=== PATIENT | female | born 1950 | race Caucasian/White ===

== ENCOUNTER 2018-09-17 21:41 | Emergency (ER) | payer OTHER ==
[2018-09-17 21:53] VITALS: BP 169/108; PULSE 104; TEMP 98.3; BMI 25.8
--- NOTE | 2018-09-18 00:41 | PDOC ---
Documentation entered by Yuko Patel SCRIBE, acting as scribe for Prema Sampson MD. Prema Sampson MD: This documentation has been prepared by the pettyeJorge Aiswarya, SCRIBE, under my direction and personally reviewed by me in its entirety. I confirm that the documentation accurately reflects all work, treatment, procedures, and medical decision making performed by me. History of Present Illness - General Chief Complaint: Laceration Stated Complaint: RT HAND LAC Time Seen by Provider: 09/17/18 21:55 History Source: Patient Exam Limitations: No Limitations - History of Present Illness Initial Comments: 09/17/18 22:22 The patient is a 68 year old female, with no significant PMH, who presents to the emergency department with right hand laceration that occurred tonight. The patient states she was cleaning a new knife when she cut the palmar aspect of her right hand proximal to phalanx index finger. Patient reports active bleeding to the site of injury and. Patient denies pain, numbness or tingling. Denies any other injury. Denies decrease ROM. Allergies: Penicillin Past surgical history: None reported Social history: None reported PCP: None reported Past History - Past Medical History Allergies/Adverse Reactions: Allergies Allergy/AdvReac Type Severity Reaction Status Date / Time Penicillins Allergy Verified 09/17/18 21:42 Home Medications: Ambulatory Orders NK [No Known Home Medication] 09/17/18 COPD: No - Suicide/Smoking/Psychosocial Hx Smoking History: Never smoked Review of Systems - Review of Systems Able to Perform ROS?: Yes Comments:: 09/17/18 22:23 GENERAL/CONSTITUTIONAL: No fever or chills. No weakness. HEAD, EYES, EARS, NOSE AND THROAT: No change in vision. No ear pain or discharge. No sore throat. MUSCULOSKELETAL: No joint or muscle swelling or pain. No neck or back pain. SKIN: right hand laceration. NEUROLOGIC: No headache, vertigo, loss of consciousness, or change in strength/ sensation. ENDOCRINE: No increased thirst. No abnormal weight change. HEMATOLOGIC/LYMPHATIC: No anemia, easy bleeding, or history of blood clots. ALLERGIC/IMMUNOLOGIC: No hives or skin allergy. *Physical Exam - Vital Signs Last Vital Signs Temp Pulse Resp BP Pulse Ox 98.3 F 104 H 18 169/108 H 100 09/17/18 21:44 09/17/18 21:44 09/17/18 21:44 09/17/18 21:44 09/17/18 21:44 - Physical Exam Comments: 09/17/18 22:23 GENERAL: Awake, alert, and fully oriented, in no acute distress HEAD: No signs of trauma EXTREMITIES: Normal range of motion, no edema. No clubbing or cyanosis. No cords, erythema, or tenderness NEUROLOGICAL: Cranial nerves II through XII grossly intact. Normal speech. SKIN:+Right hand 2.5 cm linear full diagonal laceration of the palmar aspect proximal to the phalanx index finger. Motor function and sensory intact. Procedures - Laceration/Wound Repair Right Proximal 2nd digit Wound Length: to 2.5 cm Wound Explored: clean Wound's Depth, Shape: linear Irrigated w/ Saline: Yes Betadine Prep: No (chlorhexidine/ethanol) Anesthesia: 1% Lidocaine Amount of Anesthetic (ccs): 2 Wound Repaired With: Sutures Suture Size/Type: 5:0 Number of Sutures: 4 Layer Closure: No Sterile Dressing Applied: Yes Splint Applied: No Progress: 2.5 centimeter linear, full-thickness laceration of the palmar aspect of the proximal phalanx, second digit of right hand cleansed using chlorhexidine/ ethanol solution. Local anesthesia achieved using 2 mL of 1% lidocaine solution injected subcutaneously into the wound. Wound irrigated using 60 mL normal saline. No evidence of foreign body or tendon/vascular injury on inspection of wound. Wound edges carefully approximated and wound closed with 4 interrupted sutures of 5-0 nylon. Bacitracin and sterile gauze dressing applied to the wound. Patient tolerated procedure well Medical Decision Making - Medical Decision Making This 68-year-old woman with out significant past medical history presents with full-thickness laceration of the proximal phalanx/palmar aspect of the right index finger, sustained in her own home with a new kitchen knife. Patient states that she was cleaning knife for the first time when she accidentally ran the blade across her index finger. Bleeding persisted despite continuous direct pressure. Exam as noted: Full sensory and motor functioning of finger present. Repair of wound as noted above. Patient discharged with instructions to keep original bandage place for 2 days, as dry as possible. Following this, protective dressing during the day/open at night with antibiotic ointment applied daily. The patient does not have a general medical doctor and was given Dr. Chin referral information. She should follow-up with Dr. Chin or return to the ER if evidence of infection in the wound occurs (for example, increased swelling /redness/pain in the area of the wound) Sutures should be removed in approximately 1 week (September 24) *DC/Admit/Observation/Transfer Diagnosis at time of Disposition: Finger laceration Qualifiers: Encounter type: initial encounter Finger: index finger Damage to nail status: without damage Foreign body presence: without foreign body Laterality: right Qualified Code(s): S61.210A - Laceration without foreign body of right index finger without damage to nail, initial encounter - Discharge Dispostion Disposition: HOME Condition at time of disposition: Stable - Referrals Referrals: Karyn Chin MD [Staff Physician] - - Patient Instructions Printed Discharge Instructions: How to Care for a Laceration After Repair Additional Instructions: keep original bandage in place, as dry as possible for 2 days After 2 days, placed Band-Aid on wound during day/open at night Can use bacitracin or Neosporin ointment daily to wound until sutures removed After original dressing removed, can wet wound briefly but no immersion until sutures removed Return or see Dr. Chin if wound becomes swollen/red/painful Have sutures removed on September - Post Discharge Activity
== END 2018-09-17 22:51 | disposition home or self-care (01) ==
LOC: FER 21:41
PROC: 0HQFXZZ Repair Right Hand Skin, External Approach (ICD-10-PCS; principal; 2018-09-17)
DX: S61.210A Laceration without foreign body of right index finger without damage to nail, initial encounter (principal); W26.0XXA Contact with knife, initial encounter; Y93.89 Activity, other specified; Y92.9 Unspecified place or not applicable; Z88.0 Allergy status to penicillin
CPT/HCPCS: 12001; 99281-25

== ENCOUNTER 2018-09-24 08:59 | Emergency (ER) | payer OTHER ==
--- NOTE | 2018-09-24 09:03 | PDOC ---
Suture Removal/Wound Check HPI - History of Present Illness Chief Complaint: Suture/Staple Removal (other) Stated Complaint: SUTURE REMOVAL Time Seen by Provider: 09/24/18 09:00 History Source: Yes: Patient Exam Limitations: Yes: No Limitations Treated at: [facility] - Onset of Previous Treatment Comment:: 09/24/18 09:00 68 year old female, with no significant PMH, who presents to the emergency department with suture removal s/p right finger laceration on 09/22/18. She had 4 sutures placed at that time, has been cleaning it properly without complications. No f/c, discharge, malodor, redness, swelling or pain. tdap is up to date. Past History - Past Medical History Allergies/Adverse Reactions: Allergies Allergy/AdvReac Type Severity Reaction Status Date / Time Penicillins Allergy Verified 09/17/18 21:42 Home Medications: Ambulatory Orders NK [No Known Home Medication] 09/17/18 COPD: No - Suicide/Smoking/Psychosocial Hx Smoking History: Never smoked *Review of Systems - Review of Systems Able to Perform ROS?: Yes Comments:: 09/24/18 09:00 Review of Systems Shortened - MSK/Level 4s Constitutional: no fevers or chills. MUSCULOSKELETAL: No joint pain and swelling. No muscle pain/arthralgias. Back: no back pain SKIN: no redness or skin changes, no discharge, no rash. +healed laceration Hematologic: no easy bruising/bleeding. NEUROLOGIC: No weakness, numbness or tingling. Allergic/Immunologic: pcn allergy All other systems reviewed and negative, or as documented in HPI. *Physical Exam - Physical Exam Comments: 09/24/18 09:01 General: NAD, well appearing Vascular: 2+ radialis pulses symmetric and equal. Neuro: distal station attendant strength 5/5. sensation grossly intact in median/radial/ ulnar distribution. MSK: soft compartments, Cap refill <2 sec. 2+ radialis pulses bilaterally and symmetric. FDP/FDS intact. no joint tenderness. FROM. Skin: color normal color, warm and well perfused. Rt index finger healed laceration on palmar surface proximally, measuring 2cm with [address]. No erythema/edema, nonbleeding, nontender. Procedures - Laceration/Wound Repair Right Volar Finger Wound Length: to 2.5 cm Wound's Depth, Shape: superficial Progress: 09/24/18 09:01 Verbal consent was obtained. Wound well approximated, no erythema, induration, or discharge noted. 4 sutures completely removed in a sterile fashion. Patient tolerated procedure well, no complications. Patient advised to look for and return for any signs of infection such as redness, swelling, discharge, or worsening pain. Medical Decision Making - Medical Decision Making 09/24/18 09:02 4 sutures removed uncomplicated, area well approximated to rt index finger, no s /s infection or neurovasc compromise Procedure uncomplicated, sutures removed. Instructions on wound care and proper cleaning, scar minimization. Pt understands impression and plan. *DC/Admit/Observation/Transfer Diagnosis at time of Disposition: Visit for suture removal - Discharge Dispostion Disposition: HOME Condition at time of disposition: Good Decision to Admit order: No - Referrals Referrals: Karyn Chin MD [Staff Physician] - - Patient Instructions Printed Discharge Instructions: DI for Suture Removal Additional Instructions: AFTER the stitches are removed: Clean your wound as directed. Carefully wash your wound with soap and water. Pat the area dry with a clean towel. Protect your wound. Your wound can swell, bleed, or split open if it is stretched or bumped. You may need to wear a bandage that supports your wound until it is completely healed. Minimize your scar. Use sunblock if your wound is exposed to the sun. Apply it every day after the stitches are removed. This will help prevent skin discoloration. - Post Discharge Activity
[2018-09-24 09:04] VITALS: BP 132/65; PULSE 79; TEMP 98.3; BMI 25.0
== END 2018-09-24 09:28 | disposition home or self-care (01) ==
LOC: FER 08:59
DX: Z48.02 Encounter for removal of sutures (principal)
CPT/HCPCS: 99281-25